=== PATIENT | female | born 1980 | race Two or more races ===

== ENCOUNTER 2023-12-20 14:56 | Emergency (ER) | payer MEDICAID, OTHER ==
[~2023-12-20] VITALS: Ht 154.9 cm; Wt 60.0 kg
[2023-12-20] MEDS: DexAMETHasone SOD PHOS 10MG/1ML VIAL INJ IM ONE (18:24)
[2023-12-20] MEDS: IPRATROPIUM BROM 0.5 MG/2.5ML INH SOL NEB ONE (18:40)
[2023-12-20] MEDS: ALBUTEROL SULF 2.5 MG/0.5ML(0.5%) NEB SOLN NEB ONE (18:40)
[2023-12-20 18:44] LABS: COVID19 ANTIGEN SOFIA FIA NEGATIVE (NEGATIVE); Rapid Influenza A Negative (Negative); Rapid Influenza B Negative (Negative)
[2023-12-20] MEDS ORDERED: IBUP-1454 PO (19:19)
[2023-12-20] MEDS ORDERED: ACET500T58 PO (19:19)
[2023-12-20] MEDS ORDERED: ALBU108A5 IN (19:19)
[2023-12-20 19:42] VITALS: BP 97/56; PULSE 79; RESP 18; TEMP 98.5; O2SAT 97
== END 2023-12-20 19:44 | disposition home or self-care (01) ==
LOC: ER 14:56
DX: J39.9 Disease of upper respiratory tract, unspecified (principal); Z20.822 Contact with and (suspected) exposure to COVID-19
CPT/HCPCS: 36415; 71046; 87426; 87804; 94640; 96372; 99284; J1100; J7644